=== PATIENT | female | born 1995 | race African-American/Black ===

== ENCOUNTER 2017-08-31 12:44 | Emergency (ER) | payer MEDICAID, SELFPAY ==
[2017-08-31] MEDS ORDERED: Bupivacaine 0.5% 10 ML VIAL ONE (13:03)
[2017-08-31] MEDS ORDERED: Ibuprofen 200 MG TAB ONE (13:29)
== END 2017-08-31 13:33 | disposition home or self-care (01) ==
LOC: BURERS 12:44
DX: G44.209 Tension-type headache, unspecified, not intractable (principal)
CPT/HCPCS: 99283; J3490

== ENCOUNTER 2019-11-06 03:20 | Emergency (ER) | payer SELFPAY ==
[2019-11-06 04:01] LABS: BHCG - Serum Negative (NEGATIVE); Pregs Control Background? CLEAR/WHITE (CLR/WHITE); Pregs Control Bar Appear? YES (CONTROL BAR)
[2019-11-06 04:09] LABS: Anion Gap 19 mmol/L (10-20); BUN (Urea Nitrogen) 8 mg/dL (7.0-18.7); Calc. Creatinine Clearance 0 mL/min (70-130); Carbon Dioxide 17 mmol/L (22-29); Chloride 110 mmol/L (98-107); Eosinophils 1 % (0-10); Estimated GFR-MDRD Greater than 90; Glucose 99 mg/dL (70-105); Hemoglobin 11.9 g/dL (12.0-16.0); Lymphocytes 15 % (21-51); MDiff Complete? YES; Mean Corpuscular HGB CONC 32.2 g/dL (32.0-36.0); Mean Corpuscular Hemoglobin 28.5 pg (27.0-31.0); Mean Corpuscular Volume 88.5 fL (78.0-98.0); Mean Platelet Volume 9.9 fL (7.4-10.4); Monocytes 3 % (0-10); Neutrophil 80 % (42-75); Platelet Count 211 thou/uL (130-400); Potassium 4.1 mmol/L (3.5-5.1); RBC Distribution Width 13.5 % (11.5-14.5); Red Blood Cell (RBC) Count 4.18 mill/uL (4.20-5.40); White Blood Cell (WBC) Count 9.7 thou/uL (4.8-10.8)
[2019-11-06 04:11] LABS: Platelet Morphology Comment Appears Adequate
[2019-11-06 04:12] LABS: Acetaminophen Less than 6.0 mcg/mL (10.0-30.0); RBC Morphology Normal; Salicylate Less than 8.0 mg/dL (15.0-30.0)
[2019-11-06 04:13] LABS: Alcohol 42 mg/dL (Less than 10); Calcium 8.8 mg/dL (7.8-10.44); Sodium 142 mmol/L (136-145)
--- NOTE | 2019-11-06 07:47 | CT ---
PRELIMINARY REPORT/[facility]/EMERGENCY AFTER HOURS PROCEDURE: History: Headache, memory loss, intoxication. CT head without contrast. Comparison: None. Findings: There is no evidence of acute intracranial hemorrhage. The ventricular system is not dilate d. No masses, mass effect or focal fluid collections are noted. Weldon-white matter differentiation is wel l-maintained. Visualized portions of the orbits are normal in appearance. Sinuses are clear. The calvarium and ov erlying soft tissues are unremarkable. Impression: No evidence of acute intracranial process. ELECTRONICALLY SIGNED BY: Martínez Llamas MD Nov 06, 2019 5:10:13 AM [employer]ULT[employer] This report is intended for review by the ordering physician only, in accordance of law. If you recei ve this report in error, please call [facility] at [phone]. FINAL REPORT CT BRAIN WITHOUT CONTRAST: Date: 11/06/2019 Ventricles are normal in size with no shift. No intracranial bleeding, mass, or sign of stroke was fo und. There is good weldon-white distinction. The calvarium appears normal. The visible paranasal sinuse s and mastoid air cells are clear. IMPRESSION: No acute intracranial finding. POS: HOME
== END 2019-11-06 05:15 ==
LOC: BURERS 03:20
DX: S01.81XA Laceration without foreign body of other part of head, initial encounter (principal); S90.411A Abrasion, right great toe, initial encounter; S90.414A Abrasion, right lesser toe(s), initial encounter; F17.210 Nicotine dependence, cigarettes, uncomplicated; W34.00XA Accidental discharge from unspecified firearms or gun, initial encounter
CPT/HCPCS: 36415; 70450; 80048; 80307; 84703; 85025